=== PATIENT | male | born 2005 | race Caucasian/White ===

== ENCOUNTER 2023-03-09 01:58 | Emergency (ER) | payer OTHER ==
[~2023-03-09] VITALS: Ht 177.8 cm; Wt 72.6 kg
[2023-03-09 02:00] VITALS: BP_SYST 103; PULSE 77; RESP 17; TEMP 98.2; O2SAT 97
[2023-03-09 02:25] VITALS: BP_SYST 103; PULSE 76; RESP 17; TEMP 98.2; O2SAT 97
== END 2023-03-09 02:20 ==
LOC: SED 01:58
DX: Z02.89 Encounter for other administrative examinations (principal); Z79.899 Other long term (current) drug therapy
CPT/HCPCS: 99283